=== PATIENT | male | born 1950 | race Caucasian/White ===

== ENCOUNTER 2020-07-22 14:33 | Inpatient (IN) | payer MEDICARE, BC ==
[2020-07-22] VITALS (231 sets, daily range): BP systolic 127; BP diastolic 76; PULSE 65; TEMP 97.8; O2SAT 76–100
[~2020-07-22] VITALS: Ht 182.9 cm; Wt 98.6 kg
[~2020-07-22 14:33] MED LIST: FLEXERIL10 MG PO; NAPROSYN500 MG PO; NO HOME MEDICATIONS; PERCOCET 325 MG1 TA2 PO
[2020-07-22 15:28] LABS: BASO # 0.1 (0.0-0.2); BASO % 0.6 % (0.0-2.0); EOS # 0.1 (0.0-0.7); EOS % 0.6 % (0-4.0); GRAN # 7.2 (1.4-6.5); GRAN % 81.1 % (42.2-75.2); HEMATOCRIT 41.9 % (42.0-52.0); HEMOGLOBIN 14.1 g/dl (13.5-18.0); LYMPH # 1.1 (1.2-3.4); LYMPH % 12.9 % (20.0-51.0); MEAN CELL VOLUME 89 fl (80.0-100.0); MEAN CORPUSCULAR HEMOGLOBIN 30 pg (27.0-31.0); MEAN CORPUSCULAR HGB CONC 34 g/dl (33.0-37.0); MEAN PLATELET VOLUME 9.5 fl (7.4-10.4); MONO # 0.4 (0.1-0.6); MONO % 4.3 % (1.7-9.3); PLATELET COUNT 175 K/mm3 (130-400); RED BLOOD COUNT 4.72 M/mm3 (4.20-5.60); REDCELL DISTRIBUTION WIDTH-CV 12.4 % (11.5-14.5)
[2020-07-22 15:38] LABS: ALBUMIN 4.3 gm/dL (3.5-5.0); BILIRUBIN,TOTAL 0.6 mg/dL (0.0-1.0); CALCIUM 9.5 mg/dL (8.4-10.2); CREATININE, serum 1.15 (0.66-1.25); POTASSIUM 4.9 mmol/L (3.4-5.0); TOTAL PROTEIN 7.7 gm/dL (6.4-8.2)
[2020-07-22 15:57] LABS: TROPONIN-I 0.127 ng/mL (0.000-0.035)
[2020-07-22] MEDS ORDERED: GLUCOPHAGE XR500 M1 PO (16:24)
[2020-07-22] MEDS ORDERED: ZOCOR 40MG40 MG PO (16:25)
[2020-07-22] MEDS ORDERED: AMARYL 2MG T2 MG/TAB PO (16:25)
[2020-07-22] MEDS ORDERED: PRINIVIL10 MG PO (16:26)
[2020-07-22] MEDS ORDERED: ZOLOFT 100MG100 MG PO (16:27)
[2020-07-22 19:35] LABS: COLLECTION METHOD CLEAN CATCH
[2020-07-22 19:51] LABS: MUCOUS Present /lpf; PH 5 (5-8); SQUAMOUS EPITHELIAL 0-2 /hpf; URINE APPEARANCE Clear; URINE BACTERIA Rare /hpf; URINE BILIRUBIN Negative (NEGATIVE); URINE BLOOD Negative (NEGATIVE); URINE COLOR Yellow; URINE GLUCOSE 1+ (NEGATIVE); URINE KETONE Negative (NEGATIVE); URINE LEUKOCYTE ESTERASE Negative (NEGATIVE); URINE NITRATE Negative (NEGATIVE); URINE PROTEIN(semi-quant) Negative (NEGATIVE); URINE RBC None Seen /hpf; URINE UROBILINOGEN Negative (NEGATIVE)
[2020-07-22 20:01] LABS: INR 1.2 (0.8-3.0); PROTHROMBIN TIME 12.9 SECONDS (9.7-12.8)
[2020-07-22 20:04] LABS: PARTIAL THROMBOPLASTIN TIME 28.6 SECONDS (26.0-37.0)
[2020-07-22] MEDS ORDERED: ASPIRIN 81M81 MG/TA2 PO (20:40)
--- NOTE | 2020-07-22 20:49 | NUR ---
No baseline Hep Xa obtained prior to initiated Heparin drip. Hospitalist notified; will draw hep Xa per standard protocol 6 hours after initiation. Patient alert and oriented and in no distress. VS stable. Will continue to monitor.
[2020-07-22 20:50] LABS: TROPONIN-I 3 HR POST INITIAL 0.366 ng/mL (0.000-0.034)
[2020-07-22 20:53] LABS: ARTERIAL BLD GAS O2 SATURATION 98.4 % (92-100); ARTERIAL BLD GAS TCO2 CT 22.7; ARTERIAL BLOOD GAS BASE EXCESS -2.5 (-2-2); ARTERIAL BLOOD GAS HCO3 21.6 meq/L (22-26); ARTERIAL BLOOD GAS PCO2 35.5 mmHg (35-45); ARTERIAL BLOOD GAS PO2 123.6 mmHg (80-100)
[2020-07-23] VITALS (763 sets, daily range): BP systolic 100–148; BP diastolic 53–79; PULSE 54–77; TEMP 97.5–98.6; O2SAT 84–100
--- NOTE | 2020-07-23 02:29 | NUR ---
Heparin on hold due to elevated Hep Xa level.
[2020-07-23 03:49] LABS: BASO % 0.6 % (0.0-2.0); EOS # 0.2 (0.0-0.7); EOS % 3.4 % (0-4.0); GRAN # 3.8 (1.4-6.5); GRAN % 53.1 % (42.2-75.2); HEMATOCRIT 38.7 % (42.0-52.0); HEMOGLOBIN 13.2 g/dl (13.5-18.0); LYMPH # 2.6 (1.2-3.4); LYMPH % 36.9 % (20.0-51.0); MEAN CELL VOLUME 86 fl (80.0-100.0); MEAN CORPUSCULAR HEMOGLOBIN 30 pg (27.0-31.0); MEAN CORPUSCULAR HGB CONC 34 g/dl (33.0-37.0); MEAN PLATELET VOLUME 9.4 fl (7.4-10.4); MONO # 0.4 (0.1-0.6); MONO % 5.7 % (1.7-9.3); PLATELET COUNT 169 K/mm3 (130-400); RED BLOOD COUNT 4.48 M/mm3 (4.20-5.60); REDCELL DISTRIBUTION WIDTH-CV 12.6 % (11.5-14.5)
[2020-07-23 03:58] LABS: PARTIAL THROMBOPLASTIN TIME 52.5 SECONDS (26.0-37.0)
[2020-07-23 03:59] LABS: CALCIUM 9.4 mg/dL (8.4-10.2); CREATININE, serum 1.03 (0.66-1.25); POTASSIUM 4.5 mmol/L (3.4-5.0)
[2020-07-23 04:12] LABS: TROPONIN-I 0.176 ng/mL (0.000-0.035)
--- NOTE | 2020-07-23 04:30 | NUR ---
Patient arouses easily. Alert and cooperative with staff. Denies any needs or concerns at this time.
--- NOTE | 2020-07-23 04:53 | NUR ---
Troponin critical but trending down. Not called to Provider.
--- NOTE | 2020-07-23 09:35 | NUR ---
SW met with patient about care. Patient reports that he resides in [place] with his [place] or . Patient reports that his pcp is Dr. Tang with last appointment in May 2020. Patient reports that he prefers [facility] for medications. Patient denies the use of any DME use. Patient reports that his will transport him home. Patient denies having any additonal needs at this time. Plans to return home. SW will continue to follow care, education patient on services available.
--- NOTE | 2020-07-23 15:12 | NUR ---
SEE MERGE DOCUMENTATION FOR MEDICATION ADMINISTRATION TIMES AND INTRA/POST PROCEDURE SEDATION ASSESSMENTS.
--- NOTE | 2020-07-23 15:20 | NUR ---
GAVE REPORT TO KEHINDE TAN. PATIENT TRANSFERRING TO ROOM 314 AFTER IVC FILTER IS PLACED.
--- NOTE | 2020-07-23 16:05 | NUR ---
patient arrived to medical [facility] from [facility] at this time status post IVC filter placement, right groin site puncture/access site is soft with no signs of bleeding or hematoma, dressing C/D/I, patient is alert/oriented, vital signs stable, denies pain at htis time, patient has a 2 hour flat time that will end at 1730, patient verbalizes understanding of plan of care, denies other needs at this time, will continue to monitor
--- NOTE | 2020-07-23 17:00 | NUR ---
Patient continues to do well post IVC fileter placement, vital signs stable, right groin access site is soft and non -tender, no bleeding noted, patient flat time will end at 1730 and will restart heparin gtt at that time as well
--- NOTE | 2020-07-23 18:30 | NUR ---
patient 2 hr flat time was up at 1730, heparin was also restarted at that time, he is now having some oozing from puncutre /access site, laid patient back flat and held pressure for 10 minutes, bleeding has stopped, dressing changed and Heparin shut off, I have given report to EvieRN whom is taking over patient care and she visualized new dressing and instructed to monitor for bleeding, will keep patient flat for another hour and reassess every 15 minutes
[2020-07-24 00:12] VITALS: BP 142/74; PULSE 81; TEMP 97.4
--- NOTE | 2020-07-24 01:45 | NUR ---
Patient pleasant, A/O x4. Patient laying in bed upon enter the room at 1999. Right groin IVC puncture site covered with dry gauze and C/D/I. Patient reports feeling pretty good at this time. Patient denies any chest pain, discomfort, SOB/dyspnea, N/V or dizziness. VS stable. Patient afebrile. Scheduled meds given per SEP. Offered ice water. Call light within reach. Patient denies any needs at this time.
[2020-07-24 04:08] VITALS: BP 138/62; PULSE 75; TEMP 97.6
--- NOTE | 2020-07-24 06:11 | NUR ---
Patient rested well throughout the night. Dressing to right groin IVC access site C/D/I. VS stable. Patient denies any pain or discomforts. No acute distress noted. Call light within reach. Will give report to day shift nurse.
--- NOTE | 2020-07-24 07:00 | NUR ---
Report received from KEHINDE Case. Pt in bed resting, denies need, will continue to monitor.
[2020-07-24 07:08] LABS: BASO % 0.4 % (0.0-2.0); EOS # 0.3 (0.0-0.7); EOS % 4.2 % (0-4.0); HEMATOCRIT 39.3 % (42.0-52.0); HEMOGLOBIN 13.2 g/dl (13.5-18.0); LYMPH # 2.3 (1.2-3.4); LYMPH % 32.5 % (20.0-51.0); MEAN CELL VOLUME 88 fl (80.0-100.0); MEAN CORPUSCULAR HEMOGLOBIN 30 pg (27.0-31.0); MEAN CORPUSCULAR HGB CONC 34 g/dl (33.0-37.0); MEAN PLATELET VOLUME 9.6 fl (7.4-10.4); MONO # 0.5 (0.1-0.6); MONO % 6.5 % (1.7-9.3); PLATELET COUNT 190 K/mm3 (130-400); RED BLOOD COUNT 4.48 M/mm3 (4.20-5.60); REDCELL DISTRIBUTION WIDTH-CV 12.6 % (11.5-14.5)
[2020-07-24 07:17] LABS: CALCIUM 9.2 mg/dL (8.4-10.2); CREATININE, serum 1.13 (0.66-1.25); POTASSIUM 4.3 mmol/L (3.4-5.0)
[2020-07-24 07:39] VITALS: BP 151/68; PULSE 67; TEMP 97.3
--- NOTE | 2020-07-24 08:01 | NUR ---
Assessment charted. PT resting in bed, ready to get up to recliner, pt able to get up ad andi and steady on feet, cleared him for ambulating in room independently. Provided hygeine items and dressed recliner. Denies pain, LLE is mildly warm but no longer tender. R groin IVC filter site is CDI. INT to LFA. Pt lungs are diminished in all areas except RLL. Will continue to monitor.
[2020-07-24] MEDS ORDERED: ELIQUIS 5MG PO (11:51)
[2020-07-24 12:14] VITALS: BP 123/64; PULSE 85; TEMP 97.6
--- NOTE | 2020-07-24 14:20 | NUR ---
Discharge teaching completed at this time. INT dc'd, tip intact. Tele removed. Discharge packet reviewed, f/u appointments, new scripts. Pt leaving with all bleongings, escorted out via w/c with all belongings, to drive home, criteria met.
== END 2020-07-24 14:30 | disposition home or self-care (01) | DRG 280 ==
LOC: COL.ER 14:33 → MEDICAL 17:18 → ICU 17:18 → MEDICAL 07-23 15:28
PROVIDERS: Internal Medicine Critical Care Medicine; Physician Assistant; ADMIT Student in an Organized Health Care Education/Training Program
PROC: 06H03DZ Insertion of Intraluminal Device into Inferior Vena Cava, Percutaneous Approach (ICD-10-PCS; principal; 2020-07-23)
DX: I82.4Z2 Acute embolism and thrombosis of unspecified deep veins of left distal lower extremity (principal); I26.99 Other pulmonary embolism without acute cor pulmonale; I21.A1 Myocardial infarction type 2; J96.01 Acute respiratory failure with hypoxia; R65.10 Systemic inflammatory response syndrome (SIRS) of non-infectious origin without acute organ dysfunction; I27.20 Pulmonary hypertension, unspecified; I10 Essential (primary) hypertension; E11.9 Type 2 diabetes mellitus without complications; E78.5 Hyperlipidemia, unspecified; F32.9 Major depressive disorder, single episode, unspecified; Z88.0 Allergy status to penicillin; Z79.84 Long term (current) use of oral hypoglycemic drugs; Z87.891 Personal history of nicotine dependence; Z20.822 Contact with and (suspected) exposure to COVID-19
CPT/HCPCS: 99222-AI; 99233-AI; 99239; J1644; J1815; J2250; J3010; Q9967

== ENCOUNTER → 2020-10-03 | Outpatient (CLI) | payer MEDICARE, BC ==
[~2020-10-03] MED LIST changes: +AMARYL 2MG T2 MG/TAB PO; +ASPIRIN 81M81 MG/TA2 PO; +ELIQUIS 2.5 PO; +ELIQUIS 5MG PO; +GLUCOPHAGE XR500 M1 PO; +PRINIVIL10 MG PO; +ZOCOR 40MG40 MG PO; +ZOLOFT 100MG100 MG PO
[2020-10-03 13:02] LABS: CALCIUM 9.7 mg/dL (8.4-10.2); CREATININE, serum 1.07 (0.66-1.25); POTASSIUM 4.9 mmol/L (3.4-5.0)
== END ==
LOC: COL.RAD 12:33
PROVIDERS: Internal Medicine Pulmonary Disease
DX: I25.10 Atherosclerotic heart disease of native coronary artery without angina pectoris (principal); I26.99 Other pulmonary embolism without acute cor pulmonale; Z86.711 Personal history of pulmonary embolism
CPT/HCPCS: Q9967

== ENCOUNTER → 2020-10-22 | Outpatient (CLI) | payer MEDICARE, BC | LOC: COL.VAS 11:25 | DX: I27.20 Pulmonary hypertension, unspecified (principal); I35.1 Nonrheumatic aortic (valve) insufficiency; Z86.718 Personal history of other venous thrombosis and embolism ==

== ENCOUNTER → 2021-01-16 | Outpatient (CLI) | payer MEDICARE, BC | LOC: COL.VAS 11:06 | DX: I27.20 Pulmonary hypertension, unspecified (principal); I35.1 Nonrheumatic aortic (valve) insufficiency; Z86.711 Personal history of pulmonary embolism ==

== ENCOUNTER 2021-04-22 09:51 | Outpatient (CLI) | payer MEDICARE, BC ==
[~2021-04-22] VITALS: Ht 182.9 cm; Wt 104.7 kg
[2021-04-22] VITALS (8 sets, daily range): BP systolic 127–150; BP diastolic 66–74; PULSE 57–68; TEMP 98
[~2021-04-22 09:51] MED LIST changes: -ELIQUIS 2.5 PO
[2021-04-22] MEDS ORDERED: ELIQUIS 2.5 PO (10:10)
--- NOTE | 2021-04-22 12:11 | NUR ---
SEE MERGE DOCUMENTATION FOR MEDICATION ADMINISTRATION TIMES AND INTRA/POST SEDATION ASSESSMENT.
--- NOTE | 2021-04-22 13:00 | NUR ---
Back from Radiology by bed. Alert and oriented, denies pain and needs at this time. Dressing to right IJ CD&I. VSS. bedside
--- NOTE | 2021-04-22 14:20 | NUR ---
Ambulated to bathroom with steady gait. INT discontinued intact. Dressing to right IJ remains CD&I. Discharge instructions given. Transferred to private car by armida
== END 2021-04-22 14:40 | disposition home or self-care (01) ==
LOC: COL.CAR 09:51
DX: Z45.89 Encounter for adjustment and management of other implanted devices (principal); E11.9 Type 2 diabetes mellitus without complications; Z86.711 Personal history of pulmonary embolism; Z86.718 Personal history of other venous thrombosis and embolism; Z79.84 Long term (current) use of oral hypoglycemic drugs; Z79.899 Other long term (current) drug therapy; Z87.891 Personal history of nicotine dependence
CPT/HCPCS: J1644; J2250; J3010; J7120; Q9967

== ENCOUNTER → 2023-07-27 | Outpatient (CLI) | payer MEDICARE, BC ==
[~2023-07-27] VITALS: Ht 182.9 cm; Wt 101.7 kg
[~2023-07-27] MED LIST changes: +ELIQUIS 2.5 PO; +FLEXERIL 1010 MG/TAB PO; +GLUCOTROL XL2.5 MG; +MEDROL 4MG DOSPA4 MG PO; +Triamcinolone 40 MG/ML 1 ML VIAL IJ SCH
[2023-07-27 07:20] VITALS: BP 178/82; PULSE 78; TEMP 98.4
[2023-07-27 07:50] VITALS: BP 149/79; PULSE 85
== END ==
LOC: COL.RAD 06:24
DX: M51.26 Other intervertebral disc displacement, lumbar region (principal)
CPT/HCPCS: J0665; J3301

== ENCOUNTER → 2024-04-13 | Outpatient (CLI) | payer MEDICARE, BC ==
[~2024-04-13] MED LIST changes: -Triamcinolone 40 MG/ML 1 ML VIAL IJ SCH
== END ==
LOC: COL.RAD 11:14
DX: I65.23 Occlusion and stenosis of bilateral carotid arteries (principal); H47.019 Ischemic optic neuropathy, unspecified eye